=== PATIENT | female | born 1985 | race Caucasian/White ===

== ENCOUNTER 2017-04-05 23:27 | Outpatient (CLI) | payer MEDICAID ==
[2017-04-06] MEDS: LACTATED RINGER'S 1,000 ML IV ×2 (00:51→04:12)
== END 2017-04-06 06:25 | disposition home or self-care (01) ==
LOC: OBT 23:27 → L-D 23:28 → OBT 04-06 06:25
DX: O47.1 False labor at or after 37 completed weeks of gestation (principal); Z3A.38 38 weeks gestation of pregnancy
CPT/HCPCS: 36415; 96360; 96361

== ENCOUNTER 2017-04-08 01:31 | Inpatient (IN) | payer MEDICAID ==
[2017-04-08] MEDS ORDERED: TERBUTALINE 1 ML (01:55)
[2017-04-08] MEDS ORDERED: LACTATED RINGER'S 500 ML IV (02:52)
[2017-04-08] MEDS ORDERED: LACTATED RINGER'S 1,000 ML IV (02:52)
[2017-04-08] MEDS ORDERED: CEFAZOLIN 2 GM/50 ML (PMX) 50 ML IV (03:00)
[2017-04-08] MEDS ORDERED: OXYTOCIN 30 UNITS/LR 500 ML IV ×2 (03:00→07:30)
[2017-04-08] MEDS ORDERED: MISOPROSTOL 200 MCG TAB PR ×2 (03:00→07:30)
[2017-04-08] MEDS ORDERED: METHYLERGONOVINE 0.2 MG INJ IM ×2 (03:00→07:30)
[2017-04-08] MEDS ORDERED: CARBOPROST 250 MCG INJ IM ×2 (03:00→07:30)
[2017-04-08 03:46] LABS: ADD MAN DIFF? NO
[2017-04-08] MEDS: LACTATED RINGER'S 1,000 ML IV ×3 (03:51→04:18)
[2017-04-08 03:58] LABS: INR 0.92; PROTIME 12.4 Sec (11.9-14.9)
[2017-04-08 03:59] LABS: PARTIAL THROMBOPLASTIN TIME 26.4 Sec (25.0-35.0)
[2017-04-08 04:14] LABS: WHITE BLOOD COUNT 8.9 10^3/ul (4.8-10.8)
[2017-04-08 04:14] LABS: BASOPHILS % 0.3 % (0.0-2.0); EOSINOPHILS # 0.3 10^3/ul (0.0-0.5); EOSINOPHILS % 3.8 % (0.0-7.0); HEMATOCRIT 40.1 % (37.0-47.0); HEMOGLOBIN 13.9 g/dl (12.0-16.0); LYMPHOCYTES # 2.1 10^3/ul (0.8-2.9); LYMPHOCYTES % 23.8 % (15.0-51.0); MEAN CORPUSCULAR HEMOGLOBIN 31.7 pg (29.0-33.0); MEAN CORPUSCULAR HGB CONC 34.7 g/dl (32.0-37.0); MEAN CORPUSCULAR VOLUME 91.6 fl (82.0-101.0); MONOCYTE # 0.7 10^3/ul (0.3-0.9); MONOCYTES % 7.3 % (0.0-11.0); NEUTROPHIL # 5.7 10^3/ul (1.6-7.5); NEUTROPHILS % 64.1 % (39.0-77.0); PLATELET COUNT 228 10^3/UL (140-415); RED BLOOD COUNT 4.38 10^6/ul (4.20-5.40); RED CELL DISTRIBUTION WIDTH 12.8 % (11.5-14.5)
[2017-04-08] MEDS ORDERED: OXYTOCIN 10 UNIT INJ (04:35)
[2017-04-08] MEDS ORDERED: PHENYLephrine (100 MCG/ML) 5ML SYG (04:35)
[2017-04-08] MEDS ORDERED: FENTAnyl 50 MCG/ML VIAL (04:35)
[2017-04-08] MEDS ORDERED: morphine SULFATE/PF (10 MG/10 ML) INJ (04:35)
[2017-04-08] MEDS ORDERED: EPHEDrine SULFATE 50 MG/5 ML SYG IV (05:30)
[2017-04-08] MEDS ORDERED: FENTAnyl 50 MCG/ML VIAL IV ×3 (05:30)
[2017-04-08] MEDS ORDERED: DIPHENHYDRAMINE 50 MG INJ IV (05:30)
[2017-04-08] MEDS ORDERED: LABETALOL HCL 20MG INJ IV (05:30)
[2017-04-08] MEDS ORDERED: ONDANSETRON 4 MG INJ IV ×2 (05:30)
[2017-04-08] MEDS ORDERED: MEPERIDINE 25 MG INJ IV (05:30)
[2017-04-08] MEDS ORDERED: IPRATROPIUM (NEB) 0.5 MG/2.5 ML AMP HHN (05:30)
[2017-04-08] MEDS ORDERED: ALBUTEROL 0.083% (NEB) 2.5 MG/3 ML AMP HHN (05:30)
[2017-04-08] MEDS ORDERED: NALOXONE (0.4 MG/ML) INJ IV (05:30)
[2017-04-08] MEDS ORDERED: TRIMETHOBENZAMIDE 100 MG/ML VIAL IM ×2 (05:30)
[2017-04-08] MEDS ORDERED: OXYCODONE/ACETAMINOPHEN (5/325) TAB PO ×2 (05:30)
[2017-04-08] MEDS ORDERED: KETOROLAC 30 MG INJ IV ×2 (05:30→16:00)
[2017-04-08] MEDS ORDERED: hydrALAzine 20 MG INJ IV (05:30)
[2017-04-08] MEDS ORDERED: morphine 4 MG/ML VIAL IV (05:30)
[2017-04-08] MEDS ORDERED: HYDROmorphONE (0.2 MG/ML) 10ML SYG IV ×3 (05:30)
[2017-04-08] MEDS ORDERED: NALBUPHINE HCL (10 MG/1 ML) INJ IV (05:30)
[2017-04-08] MEDS ORDERED: morphine 2 MG INJ IV (05:30)
[2017-04-08] MEDS: DIPHENHYDRAMINE 50 MG INJ IV (06:29)
[2017-04-08] MEDS: DEXTROSE 5%-LR 1,000 ML IV ×3 (07:05→22:18)
[2017-04-08] MEDS ORDERED: METHYLERGONOVINE 0.2 MG TAB PO (07:30)
[2017-04-08] MEDS: OXYTOCIN 30 UNITS/LR 500 ML IV ×2 (07:34→10:45)
[2017-04-08] MEDS: SENNA/DOCUSATE NA (8.6MG/50MG) TAB PO ×2 (09:00→21:08)
[2017-04-08 19:07] LABS: RAPID PLASMA REAGIN NONREACTIVE (NR)
[2017-04-08] MEDS: LANOLIN 7 GM TUBE TOP (19:57)
[2017-04-08] MEDS: KETOROLAC 15 MG INJ IV (19:58)
[2017-04-09] MEDS: OXYCODONE/ACETAMINOPHEN (5/325) TAB PO ×3 (05:50→21:11)
[2017-04-09] MEDS: IBUPROFEN 800 MG TAB PO ×3 (05:50→22:15)
[2017-04-09] MEDS: SENNA/DOCUSATE NA (8.6MG/50MG) TAB PO ×2 (08:51→21:12)
[2017-04-09 11:07] LABS: ADD MAN DIFF? NO
[2017-04-09 11:13] LABS: WHITE BLOOD COUNT 8.7 10^3/ul (4.8-10.8)
[2017-04-09 11:13] LABS: BASOPHILS % 0.2 % (0.0-2.0); EOSINOPHILS # 0.3 10^3/ul (0.0-0.5); EOSINOPHILS % 3.7 % (0.0-7.0); HEMATOCRIT 33.1 % (37.0-47.0); HEMOGLOBIN 11.4 g/dl (12.0-16.0); LYMPHOCYTES # 0.9 10^3/ul (0.8-2.9); LYMPHOCYTES % 10.7 % (15.0-51.0); MEAN CORPUSCULAR HEMOGLOBIN 32.3 pg (29.0-33.0); MEAN CORPUSCULAR HGB CONC 34.4 g/dl (32.0-37.0); MEAN CORPUSCULAR VOLUME 93.8 fl (82.0-101.0); MEAN PLATELET VOLUME 10.6 fl (7.4-10.4); MONOCYTE # 0.4 10^3/ul (0.3-0.9); MONOCYTES % 4.8 % (0.0-11.0); NEUTROPHIL # 6.9 10^3/ul (1.6-7.5); PLATELET COUNT 193 10^3/UL (140-415); RED BLOOD COUNT 3.53 10^6/ul (4.20-5.40); RED CELL DISTRIBUTION WIDTH 13.2 % (11.5-14.5)
[2017-04-09] MEDS: DEXTROSE 5%-LR 1,000 ML IV ×2 (15:05→20:31)
[2017-04-09] MEDS: INFLUENZA VIRUS VACCINE 0.5 ML SYG IM* (17:14)
[2017-04-10] MEDS: OXYCODONE/ACETAMINOPHEN (5/325) TAB PO ×4 (05:23→21:41)
[2017-04-10] MEDS: DEXTROSE 5%-LR 1,000 ML IV ×4 (05:23→23:05)
[2017-04-10] MEDS: IBUPROFEN 800 MG TAB PO ×3 (06:35→21:41)
[2017-04-10] MEDS: SENNA/DOCUSATE NA (8.6MG/50MG) TAB PO ×2 (09:49→21:41)
[2017-04-11] MEDS: OXYCODONE/ACETAMINOPHEN (5/325) TAB PO ×3 (05:21→15:13)
[2017-04-11] MEDS: IBUPROFEN 800 MG TAB PO ×2 (06:30→15:12)
[2017-04-11] MEDS: MEASLES,MUMPS,RUBELLA VACCINE INJ SC* (07:51)
[2017-04-11] MEDS: SENNA/DOCUSATE NA (8.6MG/50MG) TAB PO (10:00)
[2017-04-11] MEDS: DIPHTH/TET/ACEL PERTUSS (ADULT) 0.5 ML VIAL IM* (10:14)
== END 2017-04-11 16:15 | disposition home or self-care (01) | DRG 766 ==
LOC: L-D 01:31 → PP1 09:52
PROVIDERS: Obstetrics & Gynecology
PROC: 10D00Z1 Extraction of Products of Conception, Low, Open Approach (ICD-10-PCS; principal; 2017-04-08)
DX: O34.211 Maternal care for low transverse scar from previous cesarean delivery (principal); Z37.0 Single live birth; Z3A.38 38 weeks gestation of pregnancy
CPT/HCPCS: 85025; 85610; 85730; 86592; 86850; 86900; 86901; 90686; 90715; 94760; 99464

== ENCOUNTER 2017-05-04 11:14 | Emergency (ER) | payer MEDICAID ==
[2017-05-04] MEDS: ONDANSETRON (ODT) 4 MG TAB ODT (12:36)
[2017-05-04 12:41] LABS: URINE BLOOD (Dip) POC 2+ (NEGATIVE); URINE GLUCOSE (Dip) POC Negative (NEGATIVE); URINE KETONES (Dip) POC Negative (NEGATIVE); URINE LEUKOCYTE EST (Dip) POC Negative (NEGATIVE); URINE NITRITE (Dip) POC Negative (NEGATIVE); URINE TOTAL PROTEIN POC Negative (NEGATIVE)
[2017-05-04 12:41] LABS: URINE PH (Dip) POC 5.5 (5.0-8.5)
== END 2017-05-04 13:32 | disposition home or self-care (01) ==
LOC: FTE 11:14
DX: R11.2 Nausea with vomiting, unspecified (principal)
CPT/HCPCS: 81003; 99283

== ENCOUNTER 2017-07-10 19:43 | Emergency (ER) | payer MEDICAID | END 2017-07-10 21:30 | disposition home or self-care (01) | LOC: FTE 19:43 | DX: J30.9 Allergic rhinitis, unspecified (principal) | CPT/HCPCS: 99283; Z7502 ==

== ENCOUNTER 2017-11-05 19:49 | Emergency (ER) | payer MEDICAID ==
[2017-11-05 22:22] LABS: URINE BLOOD (Dip) POC 3+ (NEGATIVE); URINE GLUCOSE (Dip) POC Negative (NEGATIVE); URINE KETONES (Dip) POC Trace (NEGATIVE); URINE LEUKOCYTE EST (Dip) POC 1+ (NEGATIVE); URINE NITRITE (Dip) POC Negative (NEGATIVE); URINE TOTAL PROTEIN POC 2+ (NEGATIVE)
[2017-11-05] MEDS: CEFTRIAXONE 1 GM INJ IM (22:50)
== END 2017-11-05 23:10 | disposition home or self-care (01) ==
LOC: FTE 19:49
DX: N39.0 Urinary tract infection, site not specified (principal)
CPT/HCPCS: 81003; 81025; 96372; 99284-25

== ENCOUNTER 2018-07-22 21:15 | Emergency (ER) | payer SELFPAY, MEDICAID | END 2018-07-22 23:03 | disposition left against medical advice (07) | LOC: FTE 21:15 | DX: Z53.21 Procedure and treatment not carried out due to patient leaving prior to being seen by health care provider (principal) ==

== ENCOUNTER 2018-07-25 12:48 | Emergency (ER) | payer MEDICAID ==
[2018-07-25 13:55] LABS: URINE BLOOD (Dip) POC Negative (NEGATIVE); URINE GLUCOSE (Dip) POC Negative (NEGATIVE); URINE KETONES (Dip) POC Negative (NEGATIVE); URINE LEUKOCYTE EST (Dip) POC Negative (NEGATIVE); URINE NITRITE (Dip) POC Negative (NEGATIVE); URINE TOTAL PROTEIN POC Negative (NEGATIVE)
== END 2018-07-25 14:56 | disposition home or self-care (01) ==
LOC: FTE 12:48
DX: N76.0 Acute vaginitis (principal)
CPT/HCPCS: 81003; 81025; 87210; 99283